=== PATIENT | female | born 1945 | race African-American/Black ===

== ENCOUNTER 2017-05-29 21:22 | Observation (INO) | payer MEDICARE, BC ==
[~2017-05-29] VITALS: Ht 160 cm; Wt 103.6 kg
--- NOTE | ~2017-05-29 | CR72 ---
[facility]. [facility] A Service of [facility] RADIOLOGY TEXT RESULTS PATIENT: CHESTER CHRISTIAN LOCATION: [facility] [address] : [birth year] UNIT #: [id number] AGE: [address]: Angel Alicea MD SEX: F ORDER DR: [id number] [id number] I MR#: [id number] Acc #: [id number] NAME: CHESTER CHRISTIAN : 1945 SEX: F STUDY DATE/TIME: 05/29/2017 22:26 UNIT: SEDOF ROOM: [place] STUDY DESCRIPTION: CR Chest Single View Portable Attending Physician: Timur Vásquez M.D. Ordering Physician: Zulma Umanzor M.D. Primary Care Physician: Melina Oconnor MEDICAL IMAGING REPORT This report is preliminary unless electronic signature is present. EXAM Portable chest on 05/29 at 22:26 INDICATIONS Left side chest pain radiating down the arm for the last month. Symptoms worsened yesterday. Patient gives history of breast cancer. FINDINGS AP portable chest compared with 11/07/2016. Heart is enlarged. There is soft tissue attenuation over the lung bases. The lungs appear clear otherwise. No pneumothorax. Patient is status post cervical fusion. IMPRESSION Cardiomegaly with soft tissue attenuation over the lung bases due to body habitus. The lungs are felt to be clear, and there is no pneumothorax. Dictated by... Devin Spann Jr., M.D. THIS IS AN ELECTRONICALLY VERIFIED REPORT Devin Spann Jr., M.D. at 05/31/2017 3:12 AM J CARLOS/heaven TD: 05/30/2017 19:38 JOB #: [id number] MEDICAL IMAGING REPORT Page 1 of 1
--- NOTE | ~2017-05-29 | DS ---
Unit #: [id number] #: [id number] Patient: CHESTER CHRISTIAN [id number] [address] [address] [id number] I MR#: [id number] NAME: CHESTER CHRISTIAN ROOM: 57 Age: 72 Sex: F Admission Date: 05/29/2017 : 1945 Discharge Date: 05/31/2017 Attending Physician: Angel Alicea M.D. Primary Care Physician: Melina Oconnor DISCHARGE SUMMARY DISCHARGE DIAGNOSES 1. Chest pain, ruled out for myocardial infarction. 2. Nonobstructive coronary artery disease status post left cardiac catheterization per Dr. Alicea on 05/31/2017, which revealed left ventricle normal. Left main normal. Mid left anterior descending 30%. Left circumflex normal. Mid right coronary artery 30%. Medical management. 3. Two-dimensional echocardiogram, 05/30/2017, revealed impaired left ventricular relaxation. Mildly dilated right ventricle. Mild tricuspid regurgitation. Right ventricular systolic pressure 20 millimeters of mercury. Aortic root dimension within normal limits. No pericardial effusion. 4. Hypertension. 5. Hyperlipidemia. 6. Diabetes mellitus type 2. 7. Exertional dyspnea, questionably from obesity. 8. Breast cancer with history of right lumpectomy. 9. Abdominal mass status post abdominal ultrasound with no acute findings. Consider computed tomography of abdomen and pelvis as an outpatient. 10. History of colonoscopy November 2013 with transverse colon polyp status post snare and biopsy. Larger internal and external hemorrhoids. 11. Constipation. 12. Anemia. 13. Depression. 14. Nonsmoker. DISCHARGE MEDICATIONS 1. Albuterol 2 puffs inhalation q.6 hours as needed for shortness of breath. 2. Calcium 1 tablet p.o. daily. 3. Neurontin 600 mg p.o. b.i.d. 4. Effexor 37.5 mg p.o. daily. 5. Nystatin powder applied to breast folds as needed. 6. Letrozole 2.5 mg p.o. daily. 7. Prolia 60 mg subcu q.6 months. 8. Docusate sodium 1 tablet p.o. daily. 9. MiraLAX 17 grams p.o. b.i.d. 10. Zocor 20 mg p.o. at bedtime. 11. Losartan 50 mg p.o. daily. 12. Coenzyme Q10 - 200 mg p.o. daily. 13. Multivitamin 1 tablet p.o. daily. 14. Aspirin 81 mg p.o. daily. Unit #: [id number] #: [id number] Patient: CHESTER CHRISTIAN 15. Oxycodone 10 mg p.o. q.i.d. as needed for pain. 16. Amitiza 8 mcg p.o. b.i.d. 17. Omeprazole 20 mg p.o. b.i.d. 18. Baclofen 10 mg p.o. t.i.d. as needed for muscle spasm. 19. Amaryl 2 mg p.o. daily. 20. Isosorbide dinitrate 30 mg p.o. daily. 21. Vitamin B complex 1 tablet p.o. daily. 22. Fish oil 1,200 mg p.o. daily. HOSPITAL COURSE This is a 72-year-old female who presented to the emergency department with complaints of chest pain. She underwent a cardiac catheterization approximately 4 years ago at [facility] and was told that she had 60% blockages. Additional past medical history includes hypertension, hyperlipidemia, diabetes mellitus type 2, obesity and family history of heart disease. In the emergency department cardiac enzymes were negative. EKG revealed possible old inferior infarct but no acute changes. She was admitted for further observation. Her cardiac enzymes were trended, and she ruled out for an [place]. Two-D echocardiogram was obtained, and she was found to have a normal ejection fraction of 60% with impaired LV relaxation and mild tricuspid regurgitation. TSH level was normal. Fasting lipid profile was within parameters on statin therapy. She was given a dose of aspirin and Lovenox. She was started on nitrates. She was recommended for cardiac catheterization due to risk factors and reported coronary artery disease per cath 4 years ago. She was taken for cardiac catheterization on 05/31/[address] Alicea. Coronary angiography revealed a 30% stenosis in the mid LAD and mid right coronary artery. She was continued on medical management. She tolerated the procedure well without complications. Her right wrist is soft without hematoma. Once she ambulates, she will be discharged home. She has been instructed to follow up with her primary care provider in 1-2 weeks. A followup appointment has been arranged with Dr. Alicea for July 26, 2017 at 2 p.m. The patient did have some exertional dyspnea, but there was no evidence of congestive heart failure. She has been advised to lose weight. She did have some reported abdominal mass. Ultrasound of the abdomen was completed and revealed no abnormalities. The patient can follow as an outpatient. She may need a CT of the abdomen and pelvis for further evaluation. Of note, she did have a colonoscopy in 2013, which revealed a colon polyp, which was snared and biopsied. There are no reports of previous EGD. The patient has been instructed on discharge, and she verbalizes understanding. She is stable, and no new prescriptions have been provided at discharge. PHYSICAL EXAMINATION VITAL SIGNS: Temperature 98.7, pulse 72, blood pressure 123/63. CONSTITUTIONAL: This is a 72-year-old female in no acute distress. SKIN: Warm and dry. NECK: Supple. No jugular vein distension. No hepatojugular reflux. Normal carotid upstrokes. No carotid bruits auscultated. Unit #: [id number] #: [id number] Patient: CHESTER CHRISTIAN HEART: S1, S2. Regular rate and rhythm. No murmurs, rubs or gallops. LUNGS: Bilateral breath sounds have good air entry throughout all lung macario. Respirations even and nonlabored. No rales, rhonchi or wheezes. ABDOMEN: Soft, nontender, nondistended. Positive bowel sounds auscultated x4 quadrants. No ascites noted. EXTREMITIES: Bilateral lower extremities have no pretibial pitting edema. DP and PT pulses 2+. Capillary refill less than 3 seconds. DIAGNOSTIC STUDIES LABORATORY: White blood cell count 10, hemoglobin 9.8, hematocrit 30.5, platelets 264. Sodium 141, potassium 4.3, chloride 108, CO2 24, BUN 15, creatinine 0.9, glucose 84, AST 19, ALT 10, alkaline phosphatase 105. Troponin 0.03 and 0.03. BNP 50. TSH 0.6. INR 1.1. IMAGING: Chest x-ray on 05/29/2017 revealed cardiomegaly with soft tissue attenuation over the lung base due to body habitus. Lungs clear. Ultrasound of the abdominal wall revealed no abnormality. If further imaging would assist the management, consider CT or MRI. CARDIOVASCULAR: Electrocardiogram reveals sinus rhythm with low voltage QRS. Q waves in the inferior leads. QTc 437 msec. DISCHARGE INSTRUCTIONS 1. The patient will be discharged home today. 2. Follow up with primary care provider in 1-2 weeks. 3. Follow up with Dr. Alicea on July 26, 2017 at 2 p.m. 4. Post cath instructions provided. 5. If pain persists or worsens, the patient has been instructed to seek medical attention. 6. An ultrasound of the abdomen was obtained and revealed no abnormality. If there is concern for abdominal mass, the patient would benefit from CT of abdomen or MRI as an outpatient. Dictated by... Jaymie Diehl APRN for Wilton Mcmahon TD: 06/01/2017 10:17 JOB #: [id number] DISCHARGE SUMMARY Page 1 of 1 X X DISCHARGE SUMMARY
--- NOTE | ~2017-05-29 | EKG ---
PATIENT: CHESTER CHRISTIAN UNIT #: [id number] Ventricular Rate: 67 BPM Atrial Rate: 67 BPM P-R Interval: 138 ms QRS Duration: 82 ms Q-T Interval: 414 ms QTC Calculation(Bezet): 437 ms P [place]: 40 degrees Calculated R [place]: -2 degrees Calculated T [place]: 25 degrees Diagnosis Line: Normal sinus rhythm Diagnosis Line: Normal ECG Diagnosis Line: When compared with ECG of 30-MAY-2017 07:32, Diagnosis Line: No significant change was found Diagnosis Line: Confirmed by HEIDI RAMOS MD ([id number]) on 05/31/2017 Diagnosis Line: 6:28:35 PM INTERPRETING MD: RACHEL BARRON
--- NOTE | ~2017-05-29 | HP ---
Unit #: [id number] #: [id number] Patient: CHESTER CHRISTIAN [id number] [facility]. [place], [place] [address] [id number] I MR#: [id number] NAME: CHESTER CHRISTIAN ROOM: 571 Age: 72 Sex: F Admission Date: 05/29/2017 : 1945 Attending Physician: Carolyn Alicea M.D. Primary Care Physician: Lisa Oconnor M.D. HISTORY AND PHYSICAL HISTORY OF PRESENT ILLNESS This is a 72-year-old female who presented to the emergency room with the complaint of chest pain. She has been followed by Dr. Dickinson in the past and underwent cardiac catheterization four years ago at [facility] where she was told she had a 60% blockage. She failed to follow up with Dr. Dickinson. She is known to have hypertension, hyperlipidemia, diabetes, obesity, and family history of heart disease as risk factors for ischemic heart disease. She has had no testing since her cardiac catheterization four years ago. The patient presented to the emergency room with the complaint of substernal chest pain that radiates into her left shoulder and upper aspect of her left arm which she described initially as a dull ache but has had some sharp pain. She also said she has sharp chest pain, shortness of breath, diaphoresis, and weakness when she walks less than a block where she has to stop to rest. She is known to have had epigastric and lower chest pain in the past that has been ongoing for at least one month. That chest pain occurs every day and is usually constant. This chest pain was different. She denies paroxysmal nocturnal dyspnea or orthopnea. She had occasional ankle edema. In the emergency room, troponin has been negative. EKG shows an old inferior infarct but no acute ischemic changes. PAST MEDICAL HISTORY 1. Stress test four and a half years ago told normal. No details available. 2. Cardiac catheterization four years ago at [facility] told had 60% blockage. No details available. 3. Hypertension. 4. Hyperlipidemia. 5. Diabetes mellitus type 2. 6. Obesity. 7. Breast cancer, status post right lumpectomy. 8. Nonsmoker. PAST SURGICAL HISTORY 1. Gastric bypass. 2. Left breast lumpectomy. 3. Tubal ligation. 4. Right rotator cuff repair. 5. Hysterectomy. 6. Hemorrhoidectomy. SOCIAL HISTORY Unit #: [id number] #: [id number] Patient: CHESTER CHRISTIAN Patient is retired and . She has never smoked. She denies illicit drug and alcohol use. FAMILY HISTORY Heart disease in her mother who at age 78 with a myocardial infarction. Has two brothers who had heart disease and history of myocardial infarction. ALLERGIES No known drug allergies. HOME MEDICATIONS 1. CoQ10 at 200 mg daily. 2. Fish oil 1 tablet daily. 3. Amaryl 2 mg daily. 4. Isosorbide dinitrate 30 mg daily. 5. Losartan 50 mg daily. 6. MiraLAX 17 g b.i.d. 7. Omeprazole 20 mg b.i.d. 8. Docusate sodium 15 mg daily. 9. Aspirin 81 mg daily. 10. Letrozole 2.5 mg daily. 11. Simvastatin 20 mg at bedtime. 12. Albuterol 2 puffs q.6 hours p.r.n. 13. Baclofen 10 mg t.i.d. p.r.n. 14. Vitamin D 1 tablet daily. 15. Neurontin 600 mg b.i.d. 16. Nystatin b.i.d. p.r.n. 17. Oxycodone 10 mg q.i.d. p.r.n. 18. Effexor 37.5 mg daily. 19. Calcium 1 tablet daily. REVIEW OF SYSTEMS CONSTITUTIONAL: Negative for fever or chills. Has no recent weight gain or weight loss. HEENT: No headache, hearing or visual changes, or difficulty with swallowing. No dizziness. CARDIOVASCULAR: Has chest pain as described in the HPI. Denies palpitations. No paroxysmal nocturnal dyspnea or orthopnea. No syncope or near syncope. RESPIRATORY: Has shortness of breath that occurs on exertion. Has no cough or hemoptysis. GASTROINTESTINAL: Has persistent epigastric pain. No nausea, vomiting, hematemesis, or hematochezia. EXTREMITIES: Has occasional lower extremity edema. PHYSICAL EXAMINATION VITAL SIGNS: Blood pressure 142/74, heart rate 68, and temperature 98.1. BMI is 40. GENERAL: This is an obese, 72-year-old female who is in no acute distress. NEUROLOGIC: She is awake, alert, and oriented. There are no focal weaknesses. NECK: Trachea is midline. No thyromegaly or lymphadenopathy. No jugular venous distention. HEART: S1 and S2 heart sounds are normal. No murmurs, rubs, or clicks. Regular rate and rhythm. LUNGS: Clear without rales, rhonchi, or wheezes. Unit #: [id number] #: [id number] Patient: BLAND,CHESTER ABDOMEN: Tender in the epigastric region. There is an abnormal "mass" in the midabdominal quadrant most likely from fibrous mesh from old gastric bypass surgery. Bowel sounds are present. No edema. SKIN: Warm and dry. DIAGNOSTIC STUDIES LABORATORY: Glucose 101, BUN 18, creatinine 1, sodium 138, and potassium 3.9. CK total 80, MB 1.4, MB index 1.8, and troponin less than 0.03 and less than 0.05 x2. BNP 50. White count 10.8, hemoglobin 10, hematocrit 30.5, and platelet count is 267,000. IMAGING: Chest x-ray shows no active disease. CARDIOLOGY: EKG shows normal sinus rhythm with a rate of 74 beats per minute with Q waves noted in III and AVF with questionable old inferior infarct. IMPRESSION 1. Chest pain, rule out coronary artery disease. 2. History of 60% stenosis to an unknown artery per cardiac catheterization four years ago, no details available. 3. Exertional dyspnea questionably secondary to obesity. 4. Low voltage QRS on EKG, questionable hypothyroidism. 5. Obesity. 6. Hypertension. 7. Hyperlipidemia. 8. History of breast cancer. 9. Abdominal mass. PLAN 1. The patient presents with chest pain that is worrisome for progression of her coronary artery disease. She has been ruled out for myocardial infarction. Will require cardiac catheterization to reevaluate her coronary anatomy given multiple risk factors and chest pain. The risks and benefits have been explained to the patient, and she is agreeable. 2. Will check 2D echocardiogram to rule out pulmonary hypertension. 3. TSH will be done because of low voltage QRS on EKG. 4. Ultrasound of the abdomen will be done to evaluate abdominal mass. 5. Will anticoagulate with aspirin and Lovenox. 6. Add high-intensity statin. Zocor will be discontinued. 7. Nitrates for recurrence of chest pain. 8. Further recommendations pending results of the cardiac catheterization. 1. Dictated by Randy Wood A.P.R.N. for Wilton Mcmahon/keiko TD: 05/30/2017 15:59 JOB #: [id number] Unit #: [id number] #: [id number] Patient: CHESTER CHRISTIAN HISTORY AND PHYSICAL Page 1 of 1 X Randy Wood APRN X HISTORY AND PHYSICAL
--- NOTE | ~2017-05-29 | US8 ---
[facility] A Service of [facility] RADIOLOGY TEXT RESULTS PATIENT: CHESTER CHRISTIAN LOCATION: [facility] 571-01 : 45 UNIT #: [id number] AGE: [address]: Angel Alicea MD SEX: F ORDER DR: [id number] [facility] [address] [facility] [place], [place] [address] [id number] I MR#: [id number] Acc #: [id number] NAME: CHESTER CHRISTIAN : 1945 SEX: F STUDY DATE/TIME: 05/31/2017 9:42 UNIT: [facility] ROOM: [facility] STUDY DESCRIPTION: US Abdominal Wall/Quadrant Attending Physician: Angel Alicea M.D. Ordering Physician: Angel Alicea M.D. Primary Care Physician: Lisa Oconnor M.D. MEDICAL IMAGING REPORT This report is preliminary unless electronic signature is present EXAM Ultrasound abdomen soft tissue HISTORY Midline mass. Abdominal mass noted 3 years ago. Seems to have ground some in that time, not painful. Area about 4 inches above belly button. History of breast cancer. FINDINGS Real-time ultrasonography of the abdomen performed cephalad to the umbilicus in the area of palpable abnormality indicated by the patient. No sonographic abnormality is seen. IMPRESSION No sonographic abnormality seen in the area of palpable abnormality defined by the patient midline abdomen cephalad to umbilicus. If further imaging would assist in management, consider CT or MRI. Dictated by... Abraham Villalobos M.D. THIS IS AN ELECTRONICALLY VERIFIED REPORT Abraham Villalobos M.D. at 05/31/2017 5:45 PM YURI/teresita TD: 05/31/2017 13:02 JOB #: [id number] MEDICAL IMAGING REPORT Page 1 of 1 COPY
--- NOTE | ~2017-05-29 | EKG ---
PATIENT: CHESTER CHRISTIAN UNIT #: [id number] Ventricular Rate: 74 BPM Atrial Rate: 74 BPM P-R Interval: 148 ms QRS Duration: 78 ms Q-T Interval: 376 ms QTC Calculation(Bezet): 417 ms P [place]: 3 degrees Calculated R [place]: -3 degrees Calculated T [place]: 32 degrees Diagnosis Line: Normal sinus rhythm Diagnosis Line: Normal ECG Diagnosis Line: When compared with ECG of 07-NOV-2016 10:24, Diagnosis Line: No significant change was found Diagnosis Line: Confirmed by DEIDRE PARADA MD ([id number]) on Diagnosis Line: 05/31/2017 10:00:20 PM INTERPRETING : PHANI
--- NOTE | ~2017-05-29 | EKG ---
PATIENT: CHESTER CHRISTIAN UNIT #: [id number] Ventricular Rate: 65 BPM Atrial Rate: 65 BPM P-R Interval: 158 ms QRS Duration: 84 ms Q-T Interval: 434 ms QTC Calculation(Bezet): 451 ms P [place]: 28 degrees Calculated R [place]: -8 degrees Calculated T [place]: 33 degrees Diagnosis Line: Normal sinus rhythm Diagnosis Line: Normal ECG Diagnosis Line: When compared with ECG of 07-NOV-2016 10:24, Diagnosis Line: No significant change was found Diagnosis Line: Confirmed by SHENG FLOWERS MD ([id number]) on Diagnosis Line: 05/30/2017 11:12:41 AM INTERPRETING MD: LIONEL BARRON
[~2017-05-29 21:22] MED LIST: (NONE)2.5 MG PO; ALBUTEROL17 GM INH; AMARYL2 MG PO; ANUSOL SUPP1 SUPP; ASPIRIN81 M2 PO; BACLOFEN10 MG PO; COQ-10200 MG PO; DOK PLUS TABLE1 EACH PO; EFFEXOR37.5 MG PO; FISH OIL 1,2001 EAC1 PO; ISOSORBIDE DINI30 MG PO; LETROZOLE2.5 M1 PO; LEVAQUIN PO; LIPITOR PO; LOSARTAN POTASS50 MG PO; MIRALAX17 GM PO; NEURONTIN PO; NYSTATIN1 EAC1 TOP; OMEPRAZOLE20 M2 PO; OXYCODONE HCL10 MG PO; PROCTOFOAM-HC10 G1; TYLENOL #3 PO; VITAL-D RX TAB1 EACH PO; ZOCOR20 MG PO
[2017-05-29 22:35] LABS: BASOPHIL# 0.1 X10e3 (0-0.3); BASOPHIL% 1.1 % (0-2.5); EOSINOPHIL# 0.3 X10e3 (0-0.7); EOSINOPHIL% 2.5 % (0.0-7.0); HEMATOCRIT 30.5 % (35.0-45.0); LYMPHOCYTE# 2.6 X10e3 (1.0-3.5); LYMPHOCYTE% 23.7 % (17.0-45.0); MEAN CELL VOLUME 85.4 FL (83-96); MEAN CORPUSCULAR HEMOGLOBIN 28.1 PG (28-34); MEAN CORPUSCULAR HGB CONC 32.9 g/dL (30-36); MEAN PLATELET VOLUME 7.1 FL (6.5-11.5); MONOCYTE# 1.1 X10e3 (0-1.0); MONOCYTE% 9.8 % (3.0-12.0); NEUTROPHIL# 6.8 X10e3 (1.5-7.1); NEUTROPHIL% 62.9 % (40-75); PLATELET COUNT 267 X10e3 (140-420); RED BLOOD COUNT 3.58 X10e (3.90-5.30); WHITE BLOOD COUNT 10.8 X10e3 (4.0-10.5)
[2017-05-29 22:39] LABS: DIFF IND NO
[2017-05-29 22:45] LABS: INR 1.2; PROTHROMBIN TIME (PATIENT) 13.1 SECONDS (9.5-12.4)
[2017-05-29 22:52] LABS: PARTIAL THROMBOPLASTIN TIME 26.1 SECONDS (25.6-38.1)
[2017-05-29 22:52] LABS: POC - TROPONIN <0.05 ng/mL (<=0.05)
[2017-05-29 22:53] LABS: ALBUMIN SERUM 3.7 g/dL (3.5-5.0); BILIRUBIN, DIRECT 0.1 mg/dL (0.0-0.2); BILIRUBIN,INDIRECT 0.2 mg/dL (0.0-0.9); BILIRUBIN,TOTAL 0.3 mg/dL (0.2-2.0); CALCIUM SERUM 8.8 mg/dL (8.4-10.2); GLOM FILT RATE Estimated 65.2 mL/min (>60); POTASSIUM 3.9 mmol/L (3.5-5.1); PROTEIN TOTAL SERUM 6.5 g/dL (6.0-8.3)
[2017-05-30 00:35] LABS: POC - CKMB 1.1 ng/mL (0.0-7.9); POC - TROPONIN <0.05 ng/mL (<=0.05)
[2017-05-30] MEDS ORDERED: CALCIUM500 M1 PO (04:03)
[2017-05-30] MEDS ORDERED: ONE DAILY MULT1 EACH PO (04:04)
[2017-05-30] MEDS ORDERED: AMITIZA8 MCG PO (04:05)
[2017-05-30] MEDS ORDERED: PROLIA60 MG/1 ML SUBQ (04:07)
[2017-05-30 07:09] LABS: %MB 1.7 % (0.0-4.0); MB 1.3 ng/ml
[2017-05-30 13:18] LABS: %MB 1.8 % (0.0-4.0); MB 1.4 ng/ml
[2017-05-31 07:46] LABS: HEMATOCRIT 30.5 % (35.0-45.0); HEMOGLOBIN 9.8 gm/dL (12.0-16.0); MEAN CELL VOLUME 85.9 FL (83-96); MEAN CORPUSCULAR HEMOGLOBIN 27.7 PG (28-34); MEAN CORPUSCULAR HGB CONC 32.3 g/dL (30-36); MEAN PLATELET VOLUME 7.4 FL (6.5-11.5); RED BLOOD COUNT 3.55 X10e (3.90-5.30)
[2017-05-31 07:58] LABS: INR 1.1; PARTIAL THROMBOPLASTIN TIME 27.4 SECONDS (23.5-31.3)
[2017-05-31 08:23] LABS: BUN/CREATININE RATIO 16.66; CALCIUM SERUM 8.9 mg/dL (8.4-10.2); CREATININE SERUM 0.9 mg/dL (0.6-1.4); GLOM FILT RATE Estimated 74.1 mL/min (>60); POTASSIUM 4.3 mmol/L (3.5-5.1)
== END 2017-05-31 14:59 | disposition home or self-care (01) ==
LOC: SED 21:22 → SEDOF 23:28 → SED 23:28 → C5C 23:28 → SEDOF 05-30 02:07 → C5C 05-30 02:07 → SEDOF 05-30 02:55 → C5C 05-31 14:59
PROVIDERS: Emergency Medicine; Internal Medicine Cardiovascular Disease
DX: R07.9 Chest pain, unspecified (principal); I25.10 Atherosclerotic heart disease of native coronary artery without angina pectoris; I36.1 Nonrheumatic tricuspid (valve) insufficiency; I10 Essential (primary) hypertension; E78.5 Hyperlipidemia, unspecified; E11.9 Type 2 diabetes mellitus without complications; R06.00 Dyspnea, unspecified; K59.00 Constipation, unspecified; D64.9 Anemia, unspecified; F32.9 Major depressive disorder, single episode, unspecified; E66.9 Obesity, unspecified; R19.00 Intra-abdominal and pelvic swelling, mass and lump, unspecified site; Z68.41 Body mass index [BMI] 40.0-44.9, adult; Z85.3 Personal history of malignant neoplasm of breast; Z86.010 Personal history of colon polyps; Z79.51 Long term (current) use of inhaled steroids; Z79.82 Long term (current) use of aspirin; Z79.899 Other long term (current) drug therapy; Z98.84 Bariatric surgery status; Z98.51 Tubal ligation status; Z90.710 Acquired absence of both cervix and uterus
CPT/HCPCS: 36415; 71010; 76705; 80048; 80076; 82550; 82553; 82947; 83735; 83880; 84443; 84484; 85025; 85027; 85610; 85730; 93005; 93306; 94760; 96372; 96374; 99152; 99153; 99285; C1769; C1887; C1894; G0378; J1644; J1650; J1815; J1885; J2250; J3010